=== PATIENT | female | born 1970 | race Two or more races ===

== ENCOUNTER 2016-09-25 20:26 | Emergency (ER) | payer BC, OTHER ==
[~2016-09-25] VITALS: Ht 157.5 cm; Wt 72.6 kg
[2016-09-25 20:45] VITALS: BP 187/124
[2016-09-26] MEDS ORDERED: IBUPROFEN 600 MG TAB PO ONE
[2016-09-26] MEDS ORDERED: CYCLOBENZAPRINE HCL 10 MG TAB PO ONE
== END 2016-09-26 00:02 | disposition home or self-care (01) ==
LOC: ER 20:26
DX: S00.03XA Contusion of scalp, initial encounter (principal); Z88.6 Allergy status to analgesic agent; W21.03XA Struck by baseball, initial encounter; Y93.89 Activity, other specified; Y99.8 Other external cause status; Y92.89 Other specified places as the place of occurrence of the external cause
CPT/HCPCS: 70450